=== PATIENT | female | born 1990 | race American Indian/Alaskan Native ===

== ENCOUNTER 2017-08-17 18:38 | Emergency (ER) | payer OTHER ==
[2017-08-17 19:31] LABS: Basophils % (Auto) 0.5 % (0.0-1.8); Eosinophils # (Auto) 0.1 K/mm3 (0.0-0.4); Eosinophils % (Auto) 0.6 % (0.0-4.3); Hematocrit 41.4 % (30.3-42.9); Hemoglobin 13.7 gm/dl (10.1-14.3); Lymphocytes # (Auto) 1.6 K/mm3 (1.2-5.4); Lymphocytes % (Auto) 15.6 % (13.4-35.0); Mean Corpuscular HGB Conc 33 % (30-34); Mean Corpuscular Hemoglobin 30 pg (28-32); Mean Corpuscular Volume 90 fl (79-97); Monocytes # (Auto) 0.8 K/mm3 (0.0-0.8); Monocytes % (Auto) 7.9 % (0.0-7.3); Platelet Count 264 K/mm3 (140-440); Red Cell Distribution Width 13.6 % (13.2-15.2)
[2017-08-17 19:48] LABS: INR 0.96 (0.87-1.13)
[2017-08-17 19:49] LABS: Partial Thromboplastin Time 29.2 Sec. (24.2-36.6); Thrombin Time 16.4 Sec. (15.1-19.6)
[2017-08-17 20:08] LABS: Bilirubin,Urine NEG (Negative); Blood,Urine NEG (Negative); Color,Urine Yellow (Yellow); Mucus,Urine 3+ /HPF; Protein,Urine <15 mg/dL mg/dL (Negative)
[2017-08-17 20:12] LABS: BUN/Creatinine Ratio 12; Blood Urea Nitrogen 11 mg/dL (7-17); Calcium 9.2 mg/dL (8.4-10.2); Hemolysis Index 1
[2017-08-17 20:27] LABS: HCG Qualitative,Urine Negative (Negative)
[2017-08-17] MEDS ORDERED: NACL 0.9% 1000 ML 1,000 ML IV ONE (20:29)
--- NOTE | 2017-08-17 20:33 | Emergency Department Report ---
HPI - General Chief Complaint: Dizziness Time Seen by Provider: 08/17/17 20:10 - HPI HPI: The patient is a 27-year-old female who presents for evaluation of syncope. The patient reports experiencing severe lightheadedness/dizziness during training approximately 3 hours prior to my evaluation, exacerbated with ambulation or exertion, improved with lying flat and rest. She subsequently passed out and was assisted to the ground. She cannot possibly from her have injury to her head. The patient denies fever, headache, neck pain , paresthesias, focal motor weakness, blurry vision, ear pain, tinnitus, chest pain, hemoptysis, dyspnea, abdominal pain, confusion or altered mental status, or recent URI or diarrhea. ED Past Medical Hx - Past Medical History Previous Medical History?: No - Social History Smoking Status: Never Smoker Substance Use Type: None - Medications Home Medications: Home Medications Medication Instructions Recorded Confirmed Last Taken Type Cyclobenzaprine [Flexeril] 10 mg PO TID PRN #20 tablet 06/04/16 Unknown Rx Naproxen [Naprosyn] 500 mg PO BID #30 tablet 06/04/16 Unknown Rx Meclizine [Antivert] 25 mg PO TID PRN #20 tablet 08/17/17 Unknown Rx ED Review of Systems ROS: Stated complaint: FAINTED Other details as noted in HPI Constitutional: reports dizziness denies: fever ENT: denies: throat or neck pain Respiratory: denies: cough, shortness of breath Cardiovascular: denies: chest pain Endocrine: denies unexplained weight loss or gain Gastrointestinal: denies: abdominal pain, nausea Genitourinary: denies: dysuria Musculoskeletal: denies: leg swelling Skin: denies: rash Neurological: denies: headache Hematological/Lymphatic: denies: easy bleeding or easy bruising Psych: denies sadness or hopelessness Physical Exam - Physical Exam Vital Signs: Vital Signs 08/17/17 08/17/17 18:47 20:14 Temperature 98.5 F 98.8 F Pulse Rate 104 H 100 H Respiratory 18 14 Rate Blood Pressure 106/71 Blood Pressure 114/79 [Left] O2 Sat by Pulse 100 100 Oximetry Physical Exam: General: well-nourished, well-developed, no acute distress Head: Normocephalic, atraumatic Eyes: normal sclera ENT: Mucous membranes are pale and dry Neck: No neck stiffness, no cervical adenopathy Respiratory: Breath sounds equal bilaterally, no wheezing, rales, or rhonchi Cardio: S1 and S2 present, no murmurs, rubs, gallops, capillary refill is delayed Abdomen: Normoactive bowel sounds, soft abdomen, no rigidity, no guarding or rebound tenderness Musc: No pitting edema Skin: No rash Neuro: no facial drooping, normal speech Psych: Normal affect ED Course Vital Signs 08/17/17 08/17/17 18:47 20:14 Temperature 98.5 F 98.8 F Pulse Rate 104 H 100 H Respiratory 18 14 Rate Blood Pressure 106/71 Blood Pressure 114/79 [Left] O2 Sat by Pulse 100 100 Oximetry ED Medical Decision Making - Lab Data Result diagrams: 08/17/17 19:23 08/17/17 19:23 - Medical Decision Making The patient was seen and examined by myself. The patient is placed on a cardiac catheterization technologist and continuous pulse ox. On initial evaluation, the patient was found to be in no distress. Evaluation orders were placed. EKG is unremarkable. The patient is given 1 L normal saline fluid bolus for treatment of dehydration. Lab results were grossly unremarkable. The patient was reevaluated and reported that their symptoms were markedly improved. The patient is stable for discharge with outpatient follow-up. The patient is given follow-up and return instructions. The patient expressed understanding and agreed with the plan. The patient is discharged in stable condition. Critical care attestation.: If time is entered above; I have spent that time in minutes in the direct care of this critically ill patient, excluding procedure time. ED Disposition Clinical Impression: Dehydration, Dizziness, Orthostatic syncope Disposition: - TO HOME OR SELFCARE Is pt being admited?: No Does the pt Need Aspirin: No Condition: Stable Instructions: Syncope (ED), Dehydration (ED), Dizziness (ED) Referrals: [facility] [Outside] - 3-5 Days Time of Disposition: 20:33
[2017-08-17 23:59] VITALS: BP 114/77
== END 2017-08-17 23:05 | disposition home or self-care (01) ==
LOC: ED 18:38
DX: R55 Syncope and collapse (principal); R42 Dizziness and giddiness; E86.0 Dehydration
CPT/HCPCS: 36415; 80048; 81001; 81025; 84484; 85025; 85610; 85670; 85730; 93005; 93010; 96360; 99284; J7030